=== PATIENT | female | born 1960 | race African-American/Black ===

== ENCOUNTER 2016-10-31 08:28 | Emergency (ER) | payer BC ==
[2016-10-31 08:36] VITALS: BP 136/93
--- NOTE | 2016-10-31 08:51 | UC ---
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 it has gotten worse since, no known bite or plant contact. today redness is spreading and more painful. bumps still present on rash Skin Exposure Onset/Duration: Days Ago Timing: Constant Onset Severity: Moderate Location: Other - RUE Character: Pain, Redness, Raised Aggravating: Touch Alleviating: Nothing - tried OTC hydrocortisone cream with little relief Associated Signs & Symptoms: Positive: Negative - Allergy/Home Medications Allergies/Adverse Reactions: Allergies Allergy/AdvReac Type Severity Reaction Status Date / Time No Known Allergies Allergy Verified 10/31/16 08:30 Review of Systems Constitutional: Negative Eyes: Negative Respiratory: Negative Cardiovascular: Negative Gastrointestinal: Negative Neurological: Negative Psychological: Negative All Other Systems Reviewed And Are Negative: Yes PMH/Surg Hx/FS Hx/Imm Hx Previously Healthy: Yes - Surgical History Surgical History: Yes Surgery Procedure, Year, and Place: Multiple orthopedic surgies: Rt ankle, Rt knee, Rt elbow. 2000 - - Family History Known Family History: Positive: None - Social History Occupation: Employed Full-time - public health aides teacher Lives: With Family Alcohol Use: Occasionally Substance Use Type: None Smoking Status (MU): Never Smoked Tobacco Physical Exam Triage Information Reviewed: Yes Appearance: Well-Appearing, No Pain Distress, Well-Nourished Vital Signs: Initial Vital Signs Temp 98.8 F 10/31/16 08:31 Pulse 73 10/31/16 08:31 Resp 16 10/31/16 08:31 BP 136/93 10/31/16 08:31 Pulse Ox 98 10/31/16 08:31 Vital Signs Reviewed: Yes Respiratory Exam: Normal Respiratory: Positive: Lungs clear Cardiovascular Exam: Normal Neurological Exam: Normal Psychological Exam: Normal Skin: Positive: rashes - large erythemic, raised, painful, warm area with several tiny bumps upper R arm, no drainage, no vesicals Course/Dx - Differential Diagnoses - Skin Complaint Differential Diagnoses: Cellulitis, Contact Dermatitis, Local Allergic Reaction , Poison Deborah, Urticaria - Diagnoses Provider Diagnoses: cellulitis right upper arm Discharge - Discharge Plan Condition: Good Disposition: HOME Prescriptions: Cephalexin CAP* [Keflex CAP*] 500 mg PO QID #28 cap Referrals: Lavinia Farley NP [Primary Care Provider] - 2 Days (if no better) Additional Instructions: use antibiotic as prescribed apply Benadryl gel (over the counter) as directed return here or to primary care office if no better 2-3 days
== END 2016-10-31 09:05 | disposition home or self-care (01) ==
LOC: UCEAST 08:28
DX: L03.113 Cellulitis of right upper limb (principal)
CPT/HCPCS: 99212; G0463

== ENCOUNTER 2017-01-24 12:53 | Emergency (ER) | payer BC ==
[2017-01-24 15:48] VITALS: BP 127/96
--- NOTE | 2017-01-24 16:02 | UC ---
Skin Complaint HPI - HPI Summary HPI Summary: Patient presents with a bumpy, itchy rash on her right upper arm, and ankles. She states she had this same rash in October and was given antibiotic and it resolved. She states the same rash came back a few days ago, and it is the same. She denies any fever, new medications, recent travel, or ill contact. She states she developed the rash after she swam in [facility] with green algae. She states there are clusters of bumps that are raised mostly on her right upper arm, and a small patch on both medical ankles. - History of Current Complaint Chief Complaint: UCSkin Time Seen by Provider: 01/24/17 15:46 Stated Complaint: RASH Hx Obtained From: Patient Hx Last Menstrual Period: random ?: No Onset/Duration: Gradual Onset, Lasting Days Skin Exposure Onset/Duration: Days Ago Onset Severity: Moderate Current Severity: Moderate Location: Discrete - right upper medial arm, medial aspect of ankles. Character: Pruritus, Raised Aggravating Factor(s): Touch - worse at night. Alleviating Factor(s): OTC Meds, Other - hydrocortisone cream Associated Signs & Symptoms: Positive: Negative Similar Episode/Dx as: dermatitis - Allergy/Home Medications Allergies/Adverse Reactions: Allergies Allergy/AdvReac Type Severity Reaction Status Date / Time No Known Allergies Allergy Verified 01/24/17 13:42 Review of Systems Constitutional: Negative Skin: Rash Eyes: Negative ENT: Negative Respiratory: Negative Cardiovascular: Negative Gastrointestinal: Negative Genitourinary: Negative Motor: Negative Neurovascular: Negative Musculoskeletal: Negative Neurological: Negative Psychological: Negative All Other Systems Reviewed And Are Negative: Yes PMH/Surg Hx/FS Hx/Imm Hx Previously Healthy: Yes - Surgical History Surgical History: Yes Surgery Procedure, Year, and Place: Multiple orthopedic surgies: Rt ankle, Rt knee, Rt elbow. 2000 - - Family History Known Family History: Positive: None - Social History Lives: With Family Alcohol Use: Occasionally Substance Use Type: None Smoking Status (MU): Never Smoked Tobacco Physical Exam Triage Information Reviewed: Yes Appearance: Well-Appearing Vital Signs: Initial Vital Signs Temp 98.8 F 01/24/17 13:38 Pulse 76 01/24/17 13:38 Resp 18 01/24/17 13:38 BP 123/97 01/24/17 13:38 Pulse Ox 100 01/24/17 13:38 Vital Signs Reviewed: Yes Eye Exam: Normal ENT Exam: Normal Neck exam: Normal Neck: Positive: 1 Respiratory Exam: Normal Cardiovascular Exam: Normal Musculoskeletal Exam: Normal Skin Exam: Normal - circular clusters of white raised areas of medial upper right arm, and medial aspect of ankles. no vesicles, drainage, induration or flucuance., Other Course/Dx - Course Course Of Treatment: Patient present with recurrant rash on arms and ankles, with no recent medications changes, travel, or ill contacts. The rash has no vesicles, and is not linear. It does not appear to be consistent with zoster, or scabies. It appears more of a dermatitis or folliculitis. She will be treated with keflex 500 mg by mouth every six hours, prednisone 20 mg bid x 2 days, and hydrocortisone cream topically. Due to the fact that it is recurrent I am also recommending she follow up with a doctor osteopathic to rule out autoimmune , allergic or infectious causes of the rash. - Differential Diagnoses - Skin Complaint Differential Diagnoses: Contact Dermatitis - Diagnoses Provider Diagnoses: contact dermatitis Discharge - Discharge Plan Condition: Stable Disposition: HOME Prescriptions: Cephalexin CAP* [Keflex CAP*] 500 mg PO QID #40 cap Hydrocortisone 2.5% CREAM(NF) 1 applic TOPICAL BID PRN #1 tube PRN Reason: to affected area predniSONE TAB* [Deltasone TAB*] 20 mg PO BID #15 tab Patient Education Materials: Dermatitis (ED) Referrals: Devin De La Vega MD [Medical Doctor] - Lavinia Farley NP [Primary Care Provider] -
== END 2017-01-24 16:10 | disposition home or self-care (01) ==
LOC: UCEAST 12:53
DX: L25.9 Unspecified contact dermatitis, unspecified cause (principal)
CPT/HCPCS: 99212; G0463

== ENCOUNTER 2017-05-04 13:12 | Day surgery (SDC) | payer BC ==
[~2017-05-04 13:12] MED LIST: Buffered Lidocaine 0.9% SYRIN* 5 ML/SYR SYRINGE INTRADERM ONE
[2017-05-04] MEDS ORDERED: Buffered Lidocaine 0.9% SYRIN* 5 ML/SYR SYRINGE ONE (14:06)
[2017-05-04] MEDS ORDERED: ceFAZolin 2 GM PREMIX (*) 2 GM/50 ML BAG IVPB ONE (14:06)
[2017-05-04] MEDS ORDERED: Bupivacaine 0.25% SDV* 30 ML ONE (14:20)
[2017-05-04] MEDS ORDERED: Lidocaine 1% MPF wEPI 200,000* 30 ML SDV ONE (14:38)
[2017-05-04] MEDS ORDERED: Dexamethasone IV* 4 MG/ML 1 ML (4 MG) ONE (15:02)
[2017-05-04] MEDS ORDERED: Ketorolac INJ* 30 MG/ML 1 ML VIAL ONE (15:02)
[2017-05-04] MEDS ORDERED: Midazolam* 1 MG/ML 2 ML VIAL (2 MG) ONE (15:02)
[2017-05-04] MEDS ORDERED: Ondansetron INJ* 2 MG/ML VIAL ONE (15:02)
[2017-05-04] MEDS ORDERED: fentaNYL* 50 MCG/ML 2 ML VIAL (100 MCG VIAL) ONE (15:02)
[2017-05-04] MEDS ORDERED: Propofol* 10 MG/ML 20 ML BTL IV PUSH ONE (15:02)
[2017-05-04] MEDS ORDERED: HYDROmorphone INJ* 1 MG/ML CARPUJECT SYRINGE IV PRN (15:38)
[2017-05-04] MEDS ORDERED: oxyCODONE/Acetamin 5/325 MG* TAB PO PRN (15:38)
[2017-05-04] MEDS ORDERED: Ondansetron INJ* 2 MG/ML VIAL IV PRN (15:38)
[2017-05-04] MEDS ORDERED: DiMENhydriNATE IV* 50 MG/ML VIAL IV PUSH PRN (15:38)
[2017-05-04] MEDS ORDERED: HYDROcodone/ACETAMIN 5-325 MG* 1 TAB PO PRN (15:38)
[2017-05-04] MEDS ORDERED: fentaNYL* 50 MCG/ML 2 ML VIAL (100 MCG VIAL) IV PRN (15:38)
[2017-05-04] MEDS ORDERED: Naloxone* 0.4 MG/ML 1 ML VIAL IV PRN (15:38)
[2017-05-04] MEDS ORDERED: methylPREDNISolone ACETATE 80* 80 MG/ML 1 ML VIAL ONE (15:57)
[2017-05-04 16:59] VITALS: BP 125/95
--- NOTE | 2017-05-05 23:48 | OP ---
CC: PCP, Lavinia Soto NP * DATE OF OPERATION: 05/04/17 - [facility] DATE OF : 62 SURGEON: Bassam Stallings MD APPLICATION MANAGER: CAROLYN Vernon ANESTHESIOLOGIST: Dr. Atwood. ANESTHESIA: General. PRE-OP DIAGNOSIS: Left knee medial meniscus tear with patellofemoral mild osteoarthritis. POST-OP DIAGNOSIS: Left knee medial meniscus tear, lateral meniscus tear, medial compartment, as well as patellofemoral compartment osteoarthritis. OPERATIVE PROCEDURE: Left knee arthroscopy with medial and lateral meniscectomy , chondroplasty of the medial compartment and patellofemoral component, and intraarticular injection of 80 mg of Depo-Medrol. INDICATIONS: Kelle Jeffries is a 56-year-old female who has mechanical-based symptoms refractory to conservative management in her left knee. She was diagnosed with medial meniscal tear as well as some mild patello-femoral arthritis. Risks and benefits of surgery were discussed at length included but not limited to bleeding; infection; damage to nerves, vessels, surrounding structures; wound nonhealing; persistent pain; need for further surgery; scarring; stiffness; incomplete relief of symptoms; and risks of anesthesia. DESCRIPTION OF PROCEDURE: The patient was greeted in the preoperative area. Correct extremity was marked and consent was confirmed. The patient was brought back to the operating suite where she was placed in a supine position on the operating room table. She then underwent general anesthesia, LMA intubation, after which an unsterile tourniquet was placed high in the proximal thigh. The lateral post was positioned. The left leg was then prepped and draped in the usual sterile fashion beginning with chlorhexidine soap, scrub, and alcohol wipe and a final prep with ChloraPrep. After appropriate surgical pause indicating side, site, procedure, and administration of antibiotics, the knee was intraarticularly injected with 1% lidocaine with epi. The lateral portal was made in an outside-in fashion. The scope was examined in the patellofemoral joint which had areas of grade 2 changes to the patella. The trochlea had grade 1 changes except for the center which had grade 2 changes with bubbling of the cartilage. The medial and lateral gutters were intact with small loose cartilage bodies. The ACL and PCL were intact. The medial compartment was examined. There were areas of grade 2 and then 1 area of grade 3 and 4 changes to the medial femoral condyle. This appeared to be localized to one portion of the medial plateau; however, had grade 2 and 3 changes. The anterior medial portal was made in an outside-in fashion. Shaver was used to debride the abundant fat pad and ligamentum and do a chondroplasty of the medial femoral condyle. The meniscus was identified, it was very degenerative and frayed. It was probed, was found have unstable tear in the white-white zone, which was debrided back using rachel and biters. Once meniscectomy was completed, attention was directed to the lateral compartment. The knee was placed in a [id number] position. The posterior root of the lateral meniscus and the body had some mild fraying which was debrided back using the shaver. The lateral femoral condyle had grade 0 to 1 changes, the lateral plateau had grade 1 changes. A chondroplasty of the patellofemoral joint was then done to remove any unstable flaps of cartilage. The wound was copiously irrigated with sterile saline. The knee was thoroughly lavaged to remove any loose debris or fluid. The portals were then irrigated with fluid. They were closed with 3-0 nylon in an interrupted fashion. The knee was intra-articularly injected with 80 mg Depo with 0.25% Marcaine plain. Sterile dressings were applied. She was awoken from anesthesia and transferred to PACU in stable condition. POSTOPERATIVE PLAN: She will be weightbearing as tolerated. She will be on crutches for 3 to 5 days. She will be allowed range of motion. She will be discharged on pain medications. DVT prophylaxis deferred due to no pervious or personal family history. I will see her back in 10 to 14 days. [id number]/[facility] #: [id number] LESLI
== END 2017-05-04 17:04 | disposition home or self-care (01) ==
LOC: OR 13:12
PROVIDERS: ATTEND Orthopaedic Surgery
DX: M23.204 Derangement of unspecified medial meniscus due to old tear or injury, left knee (principal); M23.201 Derangement of unspecified lateral meniscus due to old tear or injury, left knee; M17.12 Unilateral primary osteoarthritis, left knee
CPT/HCPCS: J0690; J1040; J1100; J1885; J2001; J2250; J2405; J2704; J3010